=== PATIENT | female | born 1950 | race Caucasian/White ===

== ENCOUNTER → 2017-06-06 | Outpatient (CLI) | payer OTHER ==
[2017-06-06 12:22] LABS: BASO % 0.4 %; BASO ABS # 0.04 K/uL (0-0.2); COMPLETE YES; HEMATOCRIT 42.7 % (37-47); IG% 0.2 %; LYMPH % 32.5 %; LYMPH ABS # 2.94 K/uL (1.2-3.4); MEAN CELL VOLUME 94.7 fL (80-100); MEAN CORPUSCULAR HEMOGLOBIN 32.4 pg (25-34); MEAN CORPUSCULAR HGB CONC 34.2 g/dl (32-36); NEUT % 58.9 %; PLATELET COUNT 262 K/uL (130-400); RED BLOOD COUNT 4.51 M/uL (4.2-5.4); WHITE BLOOD COUNT 9.05 K/uL (4.8-10.8)
[2017-06-06 12:50] LABS: BLOOD UREA NITROGEN 20 mg/dl (7-18); BUN/CREATININE RATIO 22.3 (10-20); CALCIUM 9.2 mg/dl (8.5-10.1); CARBON DIOXIDE 28 mmol/L (21-32); CHLORIDE 105 mmol/L (98-107); CREATININE 0.91 mg/dl (0.60-1.20); GLUCOSE 158 mg/dl (70-99); POTASSIUM 4.4 mmol/L (3.5-5.1); SODIUM 137 mmol/L (136-145)
[2017-06-06 12:56] LABS: ESTIMATED AVERAGE GLUCOSE 163 mg/dl; HA1C FLAG Normal (Normal)
[2017-06-06 13:01] LABS: ALB/GLOB RATIO 0.8 (0.9-2); ALKALINE PHOSPHATASE 75 U/L (45-117); ALT/SGPT 36 U/L (12-78); AST/SGOT 23 U/L (15-37); CHOLESTEROL 146 mg/dl (0-200); CHOLESTEROL/HDL RATIO 4.3; HDL CHOLESTEROL 34 mg/dl; LDL CHOLESTEROL CALCULATED 86 mg/dl; TRIGLYCERIDES 131 mg/dl (0-150); VERY LOW DENSITY LIPOPROT CALC 26 mg/dl
--- NOTE | 2017-06-16 11:18 | CODING QUERY MEDICAL NECESSITY ---
CQSUPPORTING DIAGNOSIS NEEDED A supporting diagnosis is required for the test/procedure performed on this patient in order for us to be reimbursed by the patient's insurance. Please provide a supporting diagnosis for the following test/procedure listed below next to the test name along with your signature. *If there is no additional diagnosis for this patient that would support the following test/procedure please document that below next to the test/procedure. Test(s)/Procedure(s) that require a supporting diagnosis: DOS 06/06/17 CLYCATED HEMOGLOBIN TEST COMPLETE BLOOD COUNT TEST THYROID TEST LIPID TEST Provider Signature: Date: Thank you Joyce Dickens Health Information Management Once completed, please kindly fax back to [phone] For questions please call [phone]
== END | disposition home or self-care (01) ==
LOC: C.LABPBG 09:06
PROVIDERS: ATTEND Family Medicine
DX: Z76.89 Persons encountering health services in other specified circumstances (principal)

== ENCOUNTER 2017-11-21 18:14 | Emergency (ER) | payer OTHER ==
[~2017-11-21] VITALS: Ht 157.5 cm; Wt 101.6 kg
[2017-11-21 18:28] VITALS: TEMP 36.7; Ht 157.5 cm; Wt 101.6 kg
[2017-11-21 19:33] LABS: INFLUENZA B ANTIGEN Neg for Influ B (NEG)
[2017-11-21] MEDS ORDERED: KETOROLAC TROMETHAMINE 30 MG/ML VIAL IV STA (21:18)
[2017-11-21] MEDS ORDERED: ALBUT/IPRATROP 3MG/0.5MG NEB 3 ML VIAL INH STA (21:18)
[2017-11-21] MEDS ORDERED: SODIUM CHLORIDE 0.9% 1000ML 1,000 ML IV STA (21:18)
[2017-11-21] MEDS ORDERED: SODIUM CHLORIDE 0.65% NA SOLN 45 ML (OCEAN) ONE (21:30)
[2017-11-21 21:35] VITALS: O2SAT 96
[2017-11-21] MEDS ORDERED: CYAN10005 PO (21:48)
[2017-11-21] MEDS ORDERED: CALC200T PO (21:48)
[2017-11-21] MEDS ORDERED: ATEN-173 PO (21:48)
[2017-11-21] MEDS ORDERED: MULT1CAP7 PO (21:48)
[2017-11-21] MEDS ORDERED: GLC/500 PO (21:48)
[2017-11-21] MEDS ORDERED: OMEG10002 PO (21:48)
[2017-11-21] MEDS ORDERED: ASPI81TA28 PO (21:48)
[2017-11-21 22:11] LABS: BASO % 0.5 %; BASO ABS # 0.05 K/uL (0-0.2); EOS % 3.8 %; EOS ABS # 0.35 K/uL (0-0.5); HEMOGLOBIN 13.9 g/dL (12.0-16.0); IG# 0.02 K/uL (0.00-0.02); LYMPH % 47.5 %; LYMPH ABS # 4.43 K/uL (1.2-3.4); MEAN CELL VOLUME 93.2 fL (80-100); MEAN CORPUSCULAR HEMOGLOBIN 32.4 pg (25-34); MEAN CORPUSCULAR HGB CONC 34.8 g/dl (32-36); MEAN PLATELET VOLUME 9.9 fL (7.4-10.4); MONO % 7.6 %; MONO ABS # 0.71 K/uL (0.11-0.59); NEUT % 40.4 %; NEUT ABS # 3.77 K/uL (1.4-6.5); PLATELET COUNT 250 K/uL (130-400); RED CELL DISTRIBUTION WIDTH CV 12.8 % (11.5-14.5); RED CELL DISTRIBUTION WIDTH SD 43.3 fL (36.4-46.3); WHITE BLOOD COUNT 9.33 K/uL (4.8-10.8)
--- NOTE | 2017-11-21 22:17 | EMERGENCY ROOM VISIT NOTE ---
History Report prepared by Gina: Dorothy Whitten Under the Supervision of: Dr. Lionel Banks M.D. First contact with patient: 21:10 Chief Complaint: FLU LIKE SX Stated Complaint: FLU LIKE SYM History of Present Illness The patient is a 67 year old female who presents to the Emergency Room with complaints of persistent flu symptoms starting 11 days ago. The patient's symptoms started with a dry cough. She then started having rhinorrhea and chest pressure. Her chest pressure and cough worsen with lying down. She reports chest congestion and wheezing. She has felt fatigued. She had had intermittent diaphoresis and subjective fever. She has a history of diabetes, hypertension, and asthma. She denies any history of smoking. She is on baby aspirin. 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 Source of History: patient Onset: 11 days ago Position: other (global) Quality: other (flu symptoms) Timing: other (persistent) Associated Symptoms: + fevers, + diaphoresis, + cough, + chest pain, + fatigue Review of Systems See HPI for pertinent positives and negatives. A total of ten systems were reviewed and were otherwise negative. Past Medical & Surgical Medical Problems: (1) Diabetes (2) Hypertension Family History Cancer Social History Smoking Status: Never Smoker Occupation Status: employed Current/Historical Medications Scheduled Aspirin (Aspirin Ec), 81 MG PO DAILY Atenolol (Tenormin), 25 MG PO DAILY Calcium Carbonate-Vitamin D (Oscal 500/200 D-3), 1 TAB PO DAILY Cyanocobalamin (Vitamin B-12), 1,000 MCG PO DAILY Metformin Hcl (Glucophage), 250 MG PO BIDM Multiple Vitamins W/ Minerals (Multi For Her 50+), 1 CAP PO DAILY [place]-3 Fatty Acids (Fish Oil), 1,000 MG PO DAILY Oseltamivir Phosphate (Tamiflu), 75 MG PO BID Scheduled PRN Ibuprofen Tab (Motrin), 800 MG PO Q8H PRN for Pain Allergies Coded Allergies: Iodinated Diagnostic Agents (Verified Allergy, Severe, SOB-HIVES, 11/21/17) Nitrofurantoin (Verified Allergy, Intermediate, GI SYMPTOMS, 11/21/17) Shellfish (Verified Allergy, Intermediate, LETHARGIC, 11/21/17) Physical Exam Vital Signs Date Time Temp Pulse Resp B/P (MAP) Pulse Ox O2 Delivery O2 Flow Rate FiO2 11/21/17 22:59 76 21 161/80 96 Room Air 11/21/17 21:46 73 11/21/17 21:42 70 16 157/79 96 Room Air 11/21/17 21:35 96 Room Air 11/21/17 18:28 36.7 77 18 161/86 97 Room Air Physical Exam GENERAL: Awake, alert, relatively well-appearing, in no distress HENT: Normocephalic, atraumatic. Boggy nasal turbinates. Dry mucous membranes. Oropharynx unremarkable. EYES: Normal conjunctiva. Sclera non-icteric. NECK: Supple. No nuchal rigidity. FROM. No JVD. RESPIRATORY: Diminished breath sounds at the bases, but otherwise clear. CARDIAC: Regular rate, normal rhythm. Extremities warm and well perfused. Pulses equal. ABDOMEN: Soft, non-distended. No tenderness to palpation. No rebound or guarding. No masses. RECTAL: Deferred. MUSCULOSKELETAL: Chest examination reveals no tenderness. The back is symmetrical on inspection without obvious abnormality. There is no CVA tenderness to palpation. No joint edema. LOWER EXTREMITIES: Calves are equal size bilaterally and non-tender. No edema. No discoloration. NEURO: Normal sensorium. No sensory or motor deficits noted. SKIN: No rash or jaundice noted. Medical Decision & Procedures Laboratory Results 11/21/17 21:55 Red Blood Count 4.29, Mean Corpuscular Volume 93.2, Mean Corpuscular Hemoglobin 32.4, Mean Corpuscular Hemoglobin Concent 34.8, Mean Platelet Volume 9.9, Neutrophils (%) (Auto) 40.4, Lymphocytes (%) (Auto) 47.5, Monocytes (%) (Auto) 7.6, Eosinophils (%) (Auto) 3.8, Basophils (%) (Auto) 0.5, Neutrophils # (Auto) 3.77, Lymphocytes # (Auto) 4.43, Monocytes # (Auto) 0.71, Eosinophils # (Auto) 0.35, Basophils # (Auto) 0.05 11/21/17 21:55 Test 11/21/17 18:32 11/21/17 21:55 Influenza Type A Antigen Neg for Influ A (NEG) Influenza Type B Antigen Neg for Influ B (NEG) White Blood Count 9.33 K/uL (4.8-10.8) Red Blood Count 4.29 M/uL (4.2-5.4) Hemoglobin 13.9 g/dL (12.0-16.0) Hematocrit 40.0 % (37-47) Mean Corpuscular Volume 93.2 fL (80-100) Mean Corpuscular Hemoglobin 32.4 pg (25-34) Mean Corpuscular Hemoglobin Concent 34.8 g/dl (32-36) Platelet Count 250 K/uL (130-400) Mean Platelet Volume 9.9 fL (7.4-10.4) Neutrophils (%) (Auto) 40.4 % Lymphocytes (%) (Auto) 47.5 % Monocytes (%) (Auto) 7.6 % Eosinophils (%) (Auto) 3.8 % Basophils (%) (Auto) 0.5 % Neutrophils # (Auto) 3.77 K/uL (1.4-6.5) Lymphocytes # (Auto) 4.43 K/uL (1.2-3.4) Monocytes # (Auto) 0.71 K/uL (0.11-0.59) Eosinophils # (Auto) 0.35 K/uL (0-0.5) Basophils # (Auto) 0.05 K/uL (0-0.2) RDW Standard Deviation 43.3 fL (36.4-46.3) RDW Coefficient of Variation 12.8 % (11.5-14.5) Immature Granulocyte % (Auto) 0.2 % Immature Granulocyte # (Auto) 0.02 K/uL (0.00-0.02) Anion Gap 8.0 mmol/L (3-11) Est Creatinine Clear Calc Drug Dose 70.7 ml/min Estimated GFR () 81.6 Estimated GFR (Non- 70.4 BUN/Creatinine Ratio 21.0 (10-20) Calcium Level 8.9 mg/dl (8.5-10.1) Total Bilirubin 0.3 mg/dl (0.2-1) Direct Bilirubin < 0.1 mg/dl (0-0.2) Aspartate Amino Transf (AST/SGOT) 34 U/L (15-37) Alanine Aminotransferase (ALT/SGPT) 43 U/L (12-78) Alkaline Phosphatase 76 U/L (45-117) Troponin I < 0.015 ng/ml (0-0.045) Total Protein 7.7 gm/dl (6.4-8.2) Albumin 3.4 gm/dl (3.4-5.0) Lipase 178 U/L (73-393) Laboratory results reviewed by me Medications Administered Medications (Trade) Dose Ordered Sig/Brian Route Start Time Stop Time Status Last Admin Dose Admin Sodium Chloride 1,000 ml @ 999 mls/hr Q1H1M STAT IV 11/21/17 21:18 11/21/17 22:18 DC 11/21/17 21:51 999 MLS/HR Sodium Chloride ([place] Nasal [place]) 2 sprays NOW ONCE NA 11/21/17 21:30 11/21/17 21:31 DC 11/21/17 21:40 2 SPRAYS Ketorolac Tromethamine (Toradol Inj) 15 mg NOW STAT IV 11/21/17 21:18 11/21/17 21:23 DC 11/21/17 21:51 15 MG Albuterol/ Ipratropium (Duoneb) 3 ml NOW STAT INH 11/21/17 21:18 11/21/17 21:23 DC 11/21/17 21:40 3 ML Albuterol (Ventolin Hfa Inhaler) 2 puffs NOW STAT INH 11/21/17 22:46 11/21/17 22:48 DC 11/21/17 22:58 2 PUFFS Oseltamivir Phosphate (Tamiflu Cap) 75 mg NOW STAT PO 11/21/17 22:46 11/21/17 22:48 DC 11/21/17 22:58 75 MG ED Course 2111: The patient was evaluated in room A4B. A complete history and physical exam was performed. Medical Decision I reviewed the patient's past medical history, medications, and the nursing notes as described above. Differential diagnosis: viral syndrome, URI, influenza, pneumonia, bronchitis, asthma exacerbation, ACS, CHF, PE. The patient is a 59-year-old woman with a past medical history of asthma, hypertension, diabetes who presents emergency Department with cough congestion and body aches that have evolved over the past week per hpi. On arrival the patient is no acute distress, afebrile stable vital signs. EKG unremarkable and troponin negative in the setting of 1 week of constant symptoms. ACS unlikely. WBC within normal limits. Chest x-ray negative for pneumonia. Influenza screen negative however given the patient's comorbidities and symptoms as well as prevalence in the community will treat empirically with Tamiflu. Patient feeling improved after IV fluids, NSAIDs, saline nasal spray, and DuoNeb. Patient has PCP appointment scheduled for Friday for reassessment. Findings and plan for follow-up reviewed with patient. Patient agreeable and d/c 'd per discharge instructions. Impression Primary Impression: Flu-like symptoms Scribe Attestation The scribe's documentation has been prepared under my direction and personally reviewed by me in its entirety. I confirm that the note above accurately reflects all work, treatment, procedures, and medical decision making performed by me. Departure Information Dispostion Home / Self-Care Prescriptions Oseltamivir Phosphate (Tamiflu) 75 Mg Cap 75 MG PO BID, #10 CAP Prov: Lionel Banks M.D. 11/21/17 Ibuprofen Tab (MOTRIN) 800 Mg Tab 800 MG PO Q8H Y for Pain, #21 TAB Prov: Lionel Banks M.D. 11/21/17 Referrals Josh. Rubi M.D. (PCP) Patient Instructions ED Flu, [facility] Additional Instructions Please follow up with your primary care physician on Friday as scheduled for re- evaluation. You likely have a viral illness that potentially could be the flu (although your flu screen was negative today) Otherwise, your exam, EKG, chest xray, and lab results did not show signs of an emergent condition at this time. Acetaminophen or ibuprofen for pain and fevers as needed. Tamiflu as directed. Saline nasal spray and [id number] mucinex to help loosen mucus as needed. Albuterol inhaler 2 puffs every 4 hours for the next 48 hours then then as needed thereafter. Drink plenty of fluids to ensure hydration. Return to the emergency department for worsening symptoms as described in the accompanying instructions.
--- NOTE | 2017-11-21 22:24 | DIAGNOSTIC IMAGING REPORT ---
CHEST ONE VIEW PORTABLE CLINICAL HISTORY: Chest pain. COMPARISON STUDY: No previous studies for comparison. FINDINGS: Mild elevation of the right hemidiaphragm is noted. Lung volumes are normal. There is no pneumothorax or pleural effusion. There is mild interstitial thickening without overt pulmonary edema. No consolidation to suggest pneumonia. Cardiomediastinal silhouette is unremarkable. IMPRESSION: No acute cardiopulmonary findings. Electronically signed by: Wilian Moya M.D. 11/21/2017 10:23 PM Dictated Date/Time: 11/21/2017 10:22 PM
[2017-11-21 22:30] LABS: ALBUMIN 3.4 gm/dl (3.4-5.0); ALT/SGPT 43 U/L (12-78); BLOOD UREA NITROGEN 18 mg/dl (7-18); CALCIUM 8.9 mg/dl (8.5-10.1); CARBON DIOXIDE 29 mmol/L (21-32); CREATININE 0.85 mg/dl (0.60-1.20); GLUCOSE 120 mg/dl (70-99); LIPASE 178 U/L (73-393); POTASSIUM 4.2 mmol/L (3.5-5.1); SODIUM 139 mmol/L (136-145)
[2017-11-21 22:35] LABS: ALKALINE PHOSPHATASE 76 U/L (45-117); AST/SGOT 34 U/L (15-37); TOTAL PROTEIN 7.7 gm/dl (6.4-8.2)
[2017-11-21] MEDS ORDERED: OSELTAMIVIR PHOSPHATE 75 MG CAP PO STA (22:46)
[2017-11-21] MEDS ORDERED: ALBUTEROL HFA 8 GM INHALER INH STA (22:46)
[2017-11-21] MEDS ORDERED: IBUP-1451 PO (22:48)
[2017-11-21] MEDS ORDERED: OSEL75CA23 PO (22:48)
[2017-11-21 22:59] VITALS: BP 161/80; PULSE 76; O2SAT 96
== END 2017-11-21 23:06 | disposition home or self-care (01) ==
LOC: C.EDB 18:14 → C.EDA 23:06
DX: R69 Illness, unspecified (principal); E11.9 Type 2 diabetes mellitus without complications; I10 Essential (primary) hypertension; Z79.82 Long term (current) use of aspirin; Z91.013 Allergy to seafood; Z88.8 Allergy status to other drugs, medicaments and biological substances

== ENCOUNTER → 2018-01-06 | Outpatient (CLI) | payer OTHER ==
[~2018-01-06] MED LIST: ASPI81TA28 PO; ATEN-173 PO; CALC200T PO; COLC0.6T54 PO; GLC/500 PO; IBUP-1451 PO; MULT1CAP7 PO; OMEG10002 PO; OSEL75CA23 PO; VNTHFA/IN INH
== END | disposition home or self-care (01) ==
LOC: C.MAMM 07:55
PROVIDERS: ATTEND Internal Medicine Hematology & Oncology
DX: M81.0 Age-related osteoporosis without current pathological fracture (principal); M85.851 Other specified disorders of bone density and structure, right thigh; C50.919 Malignant neoplasm of unspecified site of unspecified female breast